=== PATIENT | male | born 1980 | race African-American/Black ===

== ENCOUNTER 2024-07-25 11:44 | Day surgery (SDC) | payer BC ==
[2024-07-23 11:00] VITALS: BMI 28.6
[~2024-07-25 11:44] MED LIST: HYDROmorphone 0.5 MG/0.5 ML SYRINGE IVP PRN; MIDAZOLAM 2 MG/2 ML VIAL IV PRN; Pre Op ABX Message 1 EACH MISC MISCELLANE ONE
[2024-07-25] MEDS: LACTATED RINGERS 1,000 ML IV ONE ×2 (12:23→12:37)
[2024-07-25 12:30] VITALS: RESP 16
[2024-07-25] MEDS: LACTATED RINGERS 1,000 ML IV SCH (12:37)
[2024-07-25] MEDS: ONDANSETRON 4 MG/2 ML VIAL IVP ONE (12:45)
[2024-07-25] MEDS: ACETAMINOPHEN TAB 500 MG TAB PO PRN (12:45)
[2024-07-25] MEDS: DEXAMETHASONE SOD PHOSPHATE 4 MG/ML 1 ML VIAL IV ONE (12:45)
[2024-07-25] MEDS: HEPARIN SODIUM,PORCINE 5,000 UNIT/ML 1 ML VIAL SQ PRN (12:46)
[2024-07-25] MEDS: SCOPOLAMINE 1 MG/72 HR PATCH TRANSDERM ONE (12:46)
[2024-07-25] MEDS ORDERED: MIDAZOLAM 2 MG/2 ML VIAL ONE (14:01)
[2024-07-25] MEDS ORDERED: PHENYLEPHRINE 10 MG/ML VIAL ONE (14:01)
[2024-07-25] MEDS ORDERED: fentaNYL (PF) 50 MCG/ML 2 ML AMP ONE (14:01)
[2024-07-25] MEDS ORDERED: KETOROLAC 15 MG/ML 1 ML VIAL ONE (14:01)
[2024-07-25] MEDS ORDERED: ePHEDrine 50 MG/ML 1 ML VIAL ONE (14:01)
[2024-07-25] MEDS ORDERED: PROPOFOL 10 MG/ML 20 ML VIAL IV ONE (14:01)
[2024-07-25] MEDS ORDERED: LIDOCAINE 1% INJ 10MG/ML (20 ML MDV) ONE (14:01)
[2024-07-25] MEDS: ceFAZolin 1,000 MG VIAL IVPB ONE (14:05)
[2024-07-25] MEDS: BUPIVACAINE (PF) 0.25% 30 ML VIAL SQ ONE (14:25)
[2024-07-25] MEDS ORDERED: traMADol 50 MG TAB PO PRN (15:06)
[2024-07-25] MEDS ORDERED: NALOXONE 0.4 MG/ML 1 ML VIAL IV PRN (15:06)
--- NOTE | 2024-07-25 15:09 | P.OP ---
Date of Procedure: 07/25/24 Procedure(s) Performed: PREOPERATIVE DIAGNOSIS: Back sebaceous cyst POSTOPERATIVE DIAGNOSIS: Same PROCEDURE: Excision left back sebaceous cyst 5 x 3 cm with intermediate closure 5 cm SURGEON: Chery EBL: 5 cc ANESTHESIA: General COMPLICATIONS: None OPERATIVE PROCEDURE: Patient placed in the right decubitus position. Patient's left upper back was prepped and draped sterilely. A vertical incision was made encompassing the central skin pore. Subcutaneous tissues were divided using both blunt dissection sharp dissection and cautery. The sebaceous cyst was fully excised. This measured 5 x 3 cm. Subcutaneous layers were closed using interrupted 2-0 and 3-0 Vicryl sutures. Skin closed using a running 4-0 nylon suture. Bacitracin and sterile dressings applied. DISPOSITION: Stable to recovery room
[2024-07-25 15:10] VITALS: TEMP 97.3
[2024-07-25 15:50] VITALS: BP 129/82; PULSE 87
== END 2024-07-25 16:06 | disposition home or self-care (01) ==
LOC: OR 11:44
PROVIDERS: ATTEND Surgery
DX: L72.0 Epidermal cyst (principal); I10 Essential (primary) hypertension; Z79.899 Other long term (current) drug therapy
CPT/HCPCS: 11406; 12032; J2250; J1644; J1100; J2405; J0690; J2003; J3010; J1885; J2704; J2371; J0665; 88304